=== PATIENT | male | born 1955 | race Two or more races ===

== ENCOUNTER 2021-09-18 08:56 | Outpatient (REF) | payer SELFPAY ==
[2021-09-18 09:30] LABS: MANUAL DIFF FLAG NO
[2021-09-18 09:46] LABS: Basophils Absolute Auto 0.1 X10*3/uL (0.0-0.2); Basophils Percent Auto 0.9 % (0-2); Eosinophils Absolute Auto 0.3 X10*3/uL (0.0-0.4); Eosinophils Percent Auto 4.7 % (0-4); Hematocrit 38.3 % (42.0-52.0); Hemoglobin 12.8 g/dl (14.0-18.0); Imm Gran Abs Auto 0.01 X10*3/uL (0.00-0.03); Imm Gran Pct Auto 0.2 % (0.0-0.4); Mean Corpuscular HGB Conc 33.4 g/dl (31.0-36.0); Mean Corpuscular Hemoglobin 29.8 pg (27.0-33.0); Mean Corpuscular Volume 89.1 fL (80.0-98.0); Mean Platelet Volume 9.8 fL (9.4-12.4); Monocytes Absolute Auto 0.7 X10*3/uL (0.1-1.2); Monocytes Percent Auto 11.2 % (2-11); Neutrophils Absolute Auto 3.5 x10*3/uL (2.0-8.3); Platelet Count 211 X10*3/uL (160-400); Red Cell Distribution Width 12.9 % (11.0-16.0); White Blood Count 6.6 X10*3/uL (4.8-10.8)
[2021-09-18 10:13] LABS: Alanine Aminotransferase 50 U/L (0-40); Albumin Level 4.3 g/dL (3.5-5.0); Alkaline Phosphatase 99 U/L (39-117); Anion Gap 11 (12-20); Aspartate Amino Transferase 29 U/L (5-37); Bilirubin Total 0.9 mg/dL (0.0-1.0); Blood Urea Nitrogen 19 mg/dL (9-16); Calcium 9.4 mg/dL (8.4-10.2); Carbon Dioxide 26 mmol/L (22-29); Chloride 105 mmol/L (96-108); Cholesterol 139 mg/dL; Estimated Glomerular Filt Rate > 60; Glucose Fasting 100 mg/dL (60-99); HDL Cholesterol 32 mg/dL; LDL Cholesterol Calculated 86 mg/dl; Potassium 3.9 mmol/L (3.3-5.1); Sodium 138 mmol/L (135-145); Total Protein 7.5 g/dL (6.5-8.0); Triglycerides 106 mg/dL
[2021-09-18 10:36] LABS: Prostate Specific Antigen 0.91 ng/mL (<0.05-4.0)
== END 2021-09-18 08:57 | disposition home or self-care (01) ==
LOC: HO.LAB 08:56
PROVIDERS: PCP Internal Medicine Medical Oncology; Visit Provider Internal Medicine Medical Oncology
DX: Z12.5 Encounter for screening for malignant neoplasm of prostate (principal); I25.10 Atherosclerotic heart disease of native coronary artery without angina pectoris; E78.5 Hyperlipidemia, unspecified; I10 Essential (primary) hypertension
CPT/HCPCS: 36415; 80053; 80061; 84153; 85025

== ENCOUNTER 2022-02-19 10:21 | Outpatient (REF) | payer SELFPAY ==
[2022-02-19 10:30] LABS: MANUAL DIFF FLAG NO
[2022-02-19 10:56] LABS: Basophils Percent Auto 0.6 % (0-2); Eosinophils Absolute Auto 0.3 X10*3/uL (0.0-0.4); Eosinophils Percent Auto 3.8 % (0-4); Hematocrit 39.7 % (42.0-52.0); Hemoglobin 13.3 g/dl (14.0-18.0); Imm Gran Abs Auto 0.02 X10*3/uL (0.00-0.03); Imm Gran Pct Auto 0.3 % (0.0-0.4); Lymphocytes Absolute Auto 2.2 X10*3/uL (1.2-4.9); Lymphocytes Percent Auto 30.6 % (20-40); Mean Corpuscular HGB Conc 33.5 g/dl (31.0-36.0); Mean Corpuscular Hemoglobin 29.7 pg (27.0-33.0); Mean Corpuscular Volume 88.6 fL (80.0-98.0); Mean Platelet Volume 10.2 fL (9.4-12.4); Monocytes Absolute Auto 0.7 X10*3/uL (0.1-1.2); Monocytes Percent Auto 9.8 % (2-11); Neutrophils Absolute Auto 3.9 x10*3/uL (2.0-8.3); Neutrophils Percent Auto 54.9 % (45-73); Platelet Count 216 X10*3/uL (160-400); Red Blood Count 4.48 X10*6/uL (4.60-5.80); White Blood Count 7.1 X10*3/uL (4.8-10.8)
[2022-02-19 11:21] LABS: Alanine Aminotransferase 62 U/L (0-40); Albumin Level 4.5 g/dL (3.5-5.0); Alkaline Phosphatase 98 U/L (39-117); Anion Gap 15 (12-20); Aspartate Amino Transferase 32 U/L (5-37); Bilirubin Total 0.9 mg/dL (0.0-1.0); Blood Urea Nitrogen 20 mg/dL (9-16); Calcium 9.9 mg/dL (8.4-10.2); Carbon Dioxide 25 mmol/L (22-29); Chloride 104 mmol/L (96-108); Cholesterol 166 mg/dL; Estimated Glomerular Filt Rate > 60; Glucose Fasting 107 mg/dL (60-99); HDL Cholesterol 39 mg/dL; LDL Cholesterol Calculated 104 mg/dl; Potassium 4.3 mmol/L (3.3-5.1); Sodium 140 mmol/L (135-145); Total Protein 7.9 g/dL (6.5-8.0); Triglycerides 115 mg/dL
== END 2022-02-19 10:22 | disposition home or self-care (01) ==
LOC: HO.LAB 10:21
PROVIDERS: PCP Internal Medicine Medical Oncology; Visit Provider Internal Medicine Medical Oncology
DX: E78.5 Hyperlipidemia, unspecified (principal); E66.3 Overweight
CPT/HCPCS: 36415; 80053; 80061; 85025

== ENCOUNTER 2024-10-19 08:45 | Outpatient (REF) | payer MEDICAID, SELFPAY ==
--- OUTSIDE RECORDS SUMMARY | 2024-10-19 09:30 | XMS_ITS ---
Author Organization Brandon Murguia III, MD Address [address] [place] [address] Care Team Providers Care Embossing Machine Operator Helper Name Role Phone Brandon Murguia Primary Care Provider Allergies Allergen (clinical drug ingredient) Drug/Non Drug Allergy documented on EMR Reaction Allergy Type Onset Date Status No Known Drug Allergy Unknown Drug Allergy Active REASON FOR VISIT Follow up Medications Medication SIG (Take, Route, Frequency, Duration) [...] Additional Findings: Tobacco Non-User Ex-cigaret te smoker Encounters Encounter Location Date Provider Diagnosis Brandon Murguia III, MD [address] [place] [address] [address] [place] [address] 10/19/2024 Brandon Murguia Hyperlipidemia E78.5 Assessments Encounter Date Diagnosis (ICD Code) Assessment Notes Treat ment Notes Treatment Clinical Notes 10/19/2024 Hyperlipidemia (ICD-10 - E78.5) His blood work is stable at this time and no change in his regimen as necessary. Plan Of Treatment Medication Medication Name Sig [...] MG 1 tablet Orally Once a day Next Appt Details Provider Name:Brandon Murguia, 10/19/2024 01:30:00 PM, [address] [place] [address] [address], [place], [address], Progress Notes * Darrell MAEDOB:[birth year] (69 yo M)Acc No.[id number]:10/19/2024 Progress Notes Patient: Darrell MAGALLANES Provider: Omero Murguia MD :1955 A ge:69 Y S ex:Male Date:10/19/2024 Address:[address] [place], [place] [id number] Subjective: * Chief Complaints: * 1 . Follow up. * HPI: C OVID-19 Screening: Questions H [...] of breath d enies. G astrointestinal: Constipation d enies. D ecreased appetite d enies.?Diarrhea d enies. H eartburn d enies. N ausea d enies. R ectal bleeding?denies. V omiting d enies. H ematology: bruising [...] Depressed mood d enies. * Medical History: T wo-vessel coronary artery disease, Hyperlipidemia, Hemorrhoid 09/2014. * Surgical History: N o history . * Hospitalization/Major Diagno stic Procedure: N o history . * Family History: pt does not know family history. * Social History: T obacco Use: T obacco Use/Smoking P atient is a f ormer smoker H ow long has it been since you last smoked??5-10 years A dditional Findings: Tobacco Non-User E x-cigarette smoker H e is single and lives alone and was born in [place]. * Medications: T aking Atorvastatin Calcium 80 MG Tablet TAKE 1 TABLET BY MOUTH EVERY DAY , Taking Metoprolol Tartrate 25 MG Tablet TAKE 1 TABLET BY MOUTH TWO TIMES A DAY WITH FOOD FOR 90 DAYS , Taking Lisinopril 5 MG Tablet TAKE 1 TABLET BY MOUTH EVERY DAY , Taking Simvastatin 40 MG Tablet 1 tablet in the evening Orally Once a day , Taking Adult Aspirin EC Low Strength 81 MG Tablet Delayed Release 1 tablet Orally Once a day , Taking Hydrocortisone 1 % Cream as directed Externally four times a day to effected area until resolved , Medication List reviewed and reconciled with the patient * Allergies: N o Known Drug Allergy. Objective: * Vitals: * Examination: G eneral Examination: GENERAL APPEARANCE: p leasant, well nourished, well developed, in no acute distress, calm and relaxed. HEAD: a traumatic, normocephalic. EYES: e jazmine, [...] * Assessment: 1. H yperlipidemia - E78.5 N otes :His blood work is stable at this time and no change in his regimen as necessary. Plan: * Treatment: 2. O thers Continue Atorvastatin Calcium Tablet, 80 MG, TAKE 1 TABLET BY MOUTH EVERY DAY; C ontinue Metoprolol Tartrate Tablet, 25 MG, TAKE 1 TABLET BY MOUTH TWO TIMES A DAY WITH FOOD FOR 90 DAYS; C ontinue Lisinopril Tablet, 5 MG, TAKE 1 TABLET BY MOUTH EVERY DAY. * Images: * The named appointment provid er may or may not be the originator of this progress note, and it is not deemed complete until electronically signed by the appointment provider. Sign off status: Pending * Provider: Omero Murguia MD Date: 10/19/2024 Generated for Elaine godwin/Andrew/Heidiitting on: 10/19/2024 08:59 AM EDT History and Physical Notes * HPI (History of Present Illness) Category Sub-Category Detail Notes COVID-19 Screening Questions Have you had any new onset fever, chills, cough, congestion, sore throat, shortness of breath, muscle aches?: No Examination Category Sub-Category Detail Notes General Examination GENERAL APPEARANCE: pleasant , well nourished, well developed, in no acute distress, calm and relaxed HEAD: atraumatic, normocep halic EYES: eomi, perrla, [...]
[2024-10-19 10:47] LABS: MANUAL DIFF FLAG NO
[2024-10-19 11:00] LABS: Hematocrit 38.6 % (42.0-52.0); Hemoglobin 12.8 g/dl (14.0-18.0); Imm Gran Abs Auto 0.03 X10*3/uL (0.00-0.03); Imm Gran Pct Auto 0.4 % (0.0-0.4); Lymphocytes Absolute Auto 2.4 X10*3/uL (1.2-4.9); Mean Corpuscular HGB Conc 33.2 g/dl (31.0-36.0); Mean Corpuscular Hemoglobin 28.7 pg (27.0-33.0); Mean Corpuscular Volume 86.5 fL (80.0-98.0); NRBC Abs Auto 0.000 X10*3/uL (0.0-0.012); NRBC Pct Auto 0.0 /100WBC (0.0-0.2); Platelet Count 214 X10*3/uL (160-400); Red Blood Count 4.46 X10*6/uL (4.60-5.80); White Blood Count 7.3 X10*3/uL (4.8-10.8)
[2024-10-19 11:46] LABS: Alanine Aminotransferase 47 U/L (0-40); Albumin Level 4.4 g/dL (3.5-5.0); Alkaline Phosphatase 93 U/L (39-117); Anion Gap 11 (12-20); Aspartate Amino Transferase 37 U/L (5-37); Blood Urea Nitrogen 22 mg/dL (9-16); Calcium 9.5 mg/dL (8.4-10.2); Carbon Dioxide 27 mmol/L (22-29); Chloride 104 mmol/L (96-108); Cholesterol 152 mg/dL (<200); Estimated Glomerular Filt Rate > 60; HDL Cholesterol 35 mg/dL (>40); Potassium 3.9 mmol/L (3.3-5.1); Sodium 138 mmol/L (135-145); Total Protein 7.5 g/dL (6.5-8.0); Triglycerides 128 mg/dL (<150)
== END 2024-10-19 08:46 | disposition home or self-care (01) ==
LOC: HO.HMGCLDS 08:45
PROVIDERS: PCP Internal Medicine Medical Oncology; Visit Provider Internal Medicine Medical Oncology
DX: Z00.00 Encounter for general adult medical examination without abnormal findings (principal); E78.5 Hyperlipidemia, unspecified; E66.3 Overweight
CPT/HCPCS: 36415; 80053; 80061; 85025

== ENCOUNTER 2025-03-08 08:30 | Outpatient (REF) | payer MEDICAID, SELFPAY ==
--- OUTSIDE RECORDS SUMMARY | 2023-09-10 12:45 | XMS_ITS ---
Author Organization Brandon Murguia III, MD Address [address] [place] [address] [place] [address] Care Team Providers Care Filling Station Equipment Mechanic Name Role Phone Dr. Brandon Murguia III Primary Care Provider REASON FOR VISIT follow up Social History Sex Assigned At : Social History Observation Description Sex Assigned At Male Encounters Encounter Location Date Provider Diagnosis Brandon Murguia III, MD [address] [place] [address] [place] [address] 09/10/2023 Brandon Murguia Plan Of Treatment Next Appt Details Provider Name:Brandon Murguia , 03/09/2025 01:45:00 PM, [address] [place] [address] [place], [address], Progress Notes * Darrell MAEDOB:[birth year] (69 yo M)Acc No.[id number]:09/10/2023 Progress Notes Patient: Darrell MAGALLANES Provider: Omero Murguia MD :1955 A ge:68 Y S ex:Male Date:09/10/2023 Address:[address] [place] [address] Triston faria [id number] Subjective: * Chief Complaints: * 1 . Follow up. * Medical History: Objective: * Vitals: Assessment: Plan: * Treatment: * Images: * The named appointment provid er may or may not be the originator of this progress note, and it is not deemed complete until electronically signed by the appointment provider. Sign off status: Pending * Provider: Omero Murguia MD Date: 0 09/10/2023 Generated for Elaine godwin/Andrew/Annamariasmitting on: 05/08/2024 08:45 AM EST
--- OUTSIDE RECORDS SUMMARY | 2023-12-03 09:30 | XMS_ITS ---
Author Organization Brandon Murguia III, MD Address [address] [place] [address] [place] [address] Care Team Providers Care Painting Technician Name Role Phone Dr. Brandon Murguia III Primary Care Provider Allergies Allergen (clinical drug ingredient) Drug/Non Drug Allergy documented on EMR Reaction Allergy Type Onset Date Status No Known Drug Allergy Unknown Drug Allergy Active Results Component Value Reference Range Notes PROFILE, FASTING (COMPREHENS DARLIN METABOLIC) Reviewed date:04/02/2024 02:15:44 PM Interpretation: Performing Lab: Notes/Report: LIPID PANEL Reviewed date:04/02/2024 02:15:58 PM Interpretation: Performing Lab: Notes/Report: CBC w DIFF Reviewed date:04/02/2024 02:16:10 PM Interpretation: Performing Lab: Notes/Report: Hemoglobin A1c Reviewed date:04/02/2024 02:16:24 PM Interpretation: Performing Lab: Notes/Report: REASON FOR VISIT BPH, Coronary artery disease, Hypertension, Low back pain Medications Medication SIG (Take, Route, Frequency, Duration) Notes Start Date End Date Status Lisinopril 5 MG 1 tablet Orally Once a day Active Metoprolol Tartrate 50 MG 1 tablet Orall y Twice a day Active Simvastatin 40 MG 1 tablet in the even ing Orally Once a day Active Adult Aspirin EC Low Strength 81 MG 1 tablet Orally Once a day Active Hydrocortisone 1 % as directed External ly four times a day to effected area until resolved 10/13/2014 Active Social History Tobacco Use: Social History Observation Description Date Details (start date - stop date) Former Smoker NA - NA Sex Assigned At : Social History Observation Description Sex Assigned At Male Tobacco Use/Smoking Question Answer Notes Patient is a former smoker How long has it been since you last smoked? 5-10 years Additional Findings: Tobacco Non-User Ex-cigaret te smoker Vital Signs Temperature 97.3 degrees Fahrenheit 12/03/19 24 Blood pressure systolic 134 mm Hg 12/03/19 24 Blood pressure diastolic 79 mm Hg 024 Heart Rate 50 /min 12/03/2023 Height 63 in 12/03/2023 Weight 163 lbs 12/03/2023 BMI 28.87 kg/m2 12/03/2023 Encounters Encounter Location Date Provider Diagnosis Brandon Murguia III, MD [address] [place] [address] [place] [address] 12/03/2023 Brandon Murguia Hyperlipidemia E78.5 ; CAD (coronary artery disease) I25.10 ; Essential hypertension I10 ; Hyperglycemia R73.9 ; Former smoker Z87.891 and Overweight E66.3 Assessments Encounter Date Diagnosis (ICD Code) Assessment Notes Treat ment Notes Treatment Clinical Notes 12/03/2023 Hyperlipidemia (ICD-10 - E78.5) His blood work is stable at this time and no change in his regimen as necessary. 12/03/2023 CAD (coronary artery disease) (ICD-10 - I25.10) His ischemic heart disease is stable. He has had no episodes of angina, palpitations or syncope recently. He has been compliant with his medications. His total cholesterol is in the target range. 12/03/2023 Essential hypertension (ICD-10 - I10) His blood pressure is stable today and its target range. No change in his regimen was necessary. I recommended sodium restriction and weight loss. 12/03/2023 Hyperglycemia (ICD-1 0 - R73.9) He has had normal glucose levels. The current value is 138. This will be repeated with a hemoglobin A1c. 12/03/2023 Former smoker (ICD-1 0 - Z87.891) He is motivated not to smoke and we discussed methods for maintenance of abstinence.He has lost 4 pounds since his last visit. 12/03/2023 Overweight (ICD-10 - E66.3) Plan Of Treatment Medication Medication Name Sig Start Date Stop Date Notes Lisinopril 5 MG 1 tablet Orally Once a day Metoprolol Tartrate 50 MG 1 tablet Orally Twice a day Simvastatin 40 MG 1 tablet in the even ing Orally Once a day Adult Aspirin EC Low Strengt h 81 MG 1 tablet Orally Once a day Hydrocortisone 1 % as directed External ly four times a day to effected area until resolved 10/13/2014 Next Appt Details Follow Up: 4 Months, Reason: ov review labs Provider Name:Brandon Murguia , 03/09/2025 01:45:00 PM, [address] [place] [address] [address] [facility], [place], [address], Progress Notes * Darrell MAEDOB:[birth year] (68 yo M)Acc No.[id number]:12/03/2023 Progress Notes Patient: Darrell Leal Provider: Omero Murguia MD :1955 A ge:68 Y S ex:Male Date:12/03/2023 Address:[address] [place], [place] [id number] Subjective: * Chief Complaints: * B PHCoronary artery diseaseHypertensionLow back pain * HPI: C OVID-19 Screening: He returns to the office for medical management of his issues. He has had idania ngina or syncope or palpitations since his last visit. His blood pressure is stable today. His blood work was reviewed with him. His back pain was minimal. He arises from sleep once or twice a night to urinate. We discussed modifications in his lifestyle that he can make to reduce nocturia. Blood work done November 26, 2023 showed white count 6.7, hematocrit 39.8 platelets 2:15 glucose 138, BUN 17, creatinine 0.92, total cholesterol 146, triglycerides 116 HDL 36, LDL 89. Questions H ave you experienced fever, chills, cough, sore throat, shortness of breath, difficulty breathing, muscle aches, loss of taste or smell? N o H ave you been exposed to the virus within the last 10 days? N o H ave you travelled internationally in the last 10 days? N o H ave you been exposed to COVID-19 in the past? N o * ROS: G eneral/Constitutional: pain o nly normal aches and pains. C hills d enies.?Fatigue a dmits. F ever d enies. E NT: Decreased hearing d enies. R espiratory: Cough d enies. C ardiovascular: Chest pain with exertion d enies. D yspnea on exertion?denies. S hortness of breath d enies. G astrointestinal: Constipation o ccasional. D ecreased appetite d enies. D iarrhea d enies. H eartburn d enies. N ausea d enies. R ectal bleeding d enies. V omiting d enies. H ematology: bruising d enies. p etechiae d enies. S wollen glands n one have been noted. G enitourinary: Frequent urination o nce a night. M usculoskeletal: Muscle aches d enies. P ainful joints d enies. S ciatica d enies. W eakness d enies. S kin: Itching d enies. R bianka d enies. S kin lesion(s)?denies. N eurologic: Difficulty speaking d enies. D izziness d enies.?Headache d enies. L ow back pain t hat is chronic. P sychiatric: Depressed mood d enies. * Medical History: * Surgical History: D enies Past Surgical History * Hospitalization/Major Diagno stic Procedure: D enies Past Hospitalization * Family History: pt does not know family history. * Social History: T obacco Use: T obacco Use/Smoking P atient is a f ormer smoker H ow long has it been since you last smoked??5-10 years A dditional Findings: Tobacco Non-User E x-cigarette smoker H e is single and lives alone and was born in [place]. * Medications: T akingLisinopril 5 MG Tablet 1 tablet Orally Once a dayMetoprolol Tartrate 50 MG Tablet 1 tablet Orally Twice a daySimvastatin 40 MG Tablet 1 tablet in the evening Orally Once a dayAdult Aspirin EC Low Strength 81 MG Tablet Delayed Release 1 tablet Orally Once a dayHydrocortisone 1 % Cream as directed Externally four times a day to effected area until resolvedMedication List reviewed and reconciled with the patientTaking Lisinopril 5 MG Tablet 1 tablet Orally Once a dayTaking Metoprolol Tartrate 50 MG Tablet 1 tablet Orally Twice a dayTaking Simvastatin 40 MG Tablet 1 tablet in the evening Orally Once a dayTaking Adult Aspirin EC Low Strength 81 MG Tablet Delayed Release 1 tablet Orally Once a dayTaking Hydrocortisone 1 % Cream as directed Externally four times a day to effected area until resolvedMedication List reviewed and reconciled with the patient * Allergies: N o Known Drug Allergyno[Allergies Verified] Objective: * Vitals: H t: 63, Wt:163, BMI:28.87, BP:134/79, HR:50, Temp:97.3, Wt-k.94. * Examination: G eneral Examination: GENERAL APPEARANCE: p leasant, well nourished, well developed, in no acute distress, calm and relaxed , overweight , man. HEAD: a traumatic, normocephalic. EYES: e jazmine, perrla, anicteric, conjugate. EARS: n ormal. NOSE: s eptum intact. ORAL CAVITY: n ormal, unremarkable. NECK/THYROID: n o jugular venous distention, no carotid bruit, thyroid normal. LYMPH NODES: n o enlarged lymph nodes,spleen normal. SKIN: n o suspicious lesions, anicteric. HEART: n o clicks, gallops, murmurs, or rubs, regular rhythm, S1, S2 normal, no s3, or vascular bruits. LUNGS: c lear to auscultation . BREASTS: no masses palpable bilaterally. ABDOMEN: b owel sounds normal, no ascites, no organomegaly, no mass. RECTAL EXAM: n ot examined. MUSCULOSKELETAL: e xtremities unremarkable, no clubbing, cyanosis or edema. PERIPHERAL PULSES: n ormal. NEUROLOGIC: a lert and oriented, cranial nerves 2-12 grossly intact, deep tendon reflexes 2+ symmetrical, motor strength normal upper and lower extremities, sensory exam intact. PSYCH: a lert, oriented. Assessment: * Assessment: 1. H yperlipidemia - E78.5 (Primary), His blood work is stable at this time and no change in his regimen as necessary. 2 . C AD (coronary artery disease) - I25.10, His ischemic heart disease is stable. He has had no episodes of angina, palpitations or syncope recently. He has been compliant with his medications. His total cholesterol is in the target range. 3 . E ssential hypertension - I10, His blood pressure is stable today and its target range. No change in his regimen was necessary. I recommended sodium restriction and weight loss. 4 . H yperglycemia - R73.9, He has had normal glucose levels. The current value is 138. This will be repeated with a hemoglobin A1c. 5 . F ormer smoker - Z87.891, He is motivated not to smoke and we discussed methods for maintenance of abstinence.He has lost 4 pounds since his last visit. 6 . O verweight - E66.3? Plan: * Treatment: 2. C AD (coronary artery disease) L AB: PROFILE, FASTING (COMPREHENSIVE METABOLIC) L AB: LIPID PANEL L AB: CBC w DIFF L AB: Hemoglobin A1c 3. E ssential hypertension L AB: PROFILE, FASTING (COMPREHENSIVE METABOLIC) L AB: LIPID PANEL L AB: CBC w DIFF L AB: Hemoglobin A1c 4. H yperglycemia L AB: PROFILE, FASTING (COMPREHENSIVE METABOLIC) L AB: LIPID PANEL L AB: CBC w DIFF L AB: Hemoglobin A1c * Procedure Codes: * Preventive Medicine: Counseling: C are goal follow-up plan: Counseling for abnormal BMI given Y es Above Normal BMI Follow-up D ietary management education, guidance, and counseling S moking/Tobacco Use Patient counseled on the dangers of tobacco use and urged to quit. 0 11/19/2023 * Follow Up: 4 Months (Reason: ov review labs ) * Images: * Sign off status: Completed true * Provider: Omero Murguia MD Date: 0 12/03/2023 Generated for Elaine godwin/Andrew/Heidiitting on: 05/08/2024 08:46 AM EST History and Physical Notes * HPI (History of Present Illness) Category Sub-Category Detail Notes COVID-19 Screening Questions Have you had any new onset fever, chills, cough, congestion, sore throat, shortness of breath, muscle aches?: No Have you been exposed to the virus with n the last 10 days?: No Have you travelled internationally in last 10 days?: No Have you been exposed to COVID-19 in the past?: No Examination Category Sub-Category Detail Notes General Examination GENERAL APPEARANCE: pleasant , well nourished, well developed, in no acute distress, calm and relaxed , overweight , man HEAD: atraumatic, normocep halic EYES: eomi, perrla, anicte juanito, conjugate EARS: normal NOSE: septum intact NECK/THYROID: no jugular venous di stention, no carotid bruit, thyroid normal HEART: no clicks, gallops, murmurs, or rubs, regular rhythm, S1, S2 normal, no s3, or vascular bruits LUNGS: clear to auscultatio n ABDOMEN: bowel sounds normal, no ascites, no organomegaly, no mass NEUROLOGIC: alert and oriented, cranial nerves 2-12 grossly intact, deep tendon reflexes 2+ symmetrical, motor strength normal upper and lower extremities, sensory exam intact SKIN: no suspicious lesion s, anicteric PERIPHERAL PULSES: normal BREASTS: no masses palpable b ilaterally MUSCULOSKELETAL: extremities unremark able, no clubbing, cyanosis or edema LYMPH NODES: no enlarged lymph no marisa,spleen normal RECTAL EXAM: not examined PSYCH: alert, oriented ORAL CAVITY: normal, unremarkable
--- OUTSIDE RECORDS SUMMARY | 2024-03-31 09:15 | XMS_ITS ---
Author Organization Brandon Murguia III, MD Address [address] [place] [address] [place] [id number] Care Team Providers Care Broker Name Role Phone Dr. Brandon Murguia III Primary Care Provider Allergies Allergen (clinical drug ingredient) Drug/Non Drug Allergy documented on EMR Reaction Allergy Type Onset Date Status No Known Drug Allergy Unknown Drug Allergy Active REASON FOR VISIT Coronary artery disease, Hyperlipidemia, Hypertension, Low back pain, Benign prostatic hypertrophy Medications Medication SIG (Take, Route, Frequency, Duration) Notes Start Date End Date Status Metoprolol Tartrate 25 MG TAKE 1 TABLET BY MOUTH TWO TIMES A DAY WITH FOOD FOR 90 DAYS Active Simvastatin 40 MG 1 tablet in the even ing Orally Once a day Active Lisinopril 5 MG TAKE 1 TABLET BY KORY TH EVERY DAY Active Hydrocortisone 1 % as directed External ly four times a day to effected area until resolved 10/13/2014 Active Adult Aspirin EC Low Strength 81 MG 1 tablet Orally Once a day Active Atorvastatin Calcium 80 MG TAKE 1 TABLET BY MOUTH EVERY DAY Active Social History Tobacco Use: Social History [...] Non-User Ex-cigaret te smoker Vital Signs Temperature 97.2 degrees Fahrenheit 03/31/20 24 Blood pressure systolic 138 mm Hg 03/31/20 24 Blood pressure diastolic 75 mm Hg 024 Heart Rate 42 /min 03/31/2024 Height 63 in 03/31/2024 Weight 162 lbs 03/31/2024 BMI 28.69 kg/m2 03/31/2024 Encounters Encounter Location Date Provider Diagnosis Brandon Murguia III, MD [address] [place] [address] DR [place], [place]ZA [id number] 03/31/2024 Brandon Murguia Hyperlipidemia E78.5 ; Essential hypertension I10 ; Back pain, unspecified back location, unspecified back pain laterality, unspecified chronicity M54.9 ; Hyperglycemia R73.9 ; CAD (coronary artery disease) I25.10 ; Former smoker Z87.891 and Overweight E66.3 Assessments Encounter Date Diagnosis (ICD Code) Assessment Notes Treat ment Notes Treatment Clinical Notes 03/31/2024 Hyperlipidemia (ICD-10 - E78.5) His blood work is stable at this time and no change in his regimen as necessary. 03/31/2024 Essential hypertension (ICD-10 - I10) His blood pressure today was 138/75. He was encouraged to lose weight and restrict sodium. No change in his medications was necessary. 03/31/2024 Back pain, unspecified back location, unspecified back pain laterality, unspecified chronicity (ICD-10 - M54.9) His back pain is intermittent and low-grade at this point. He will continue to avoid undue exertion and heavy lifting. He will return to the office at once if it exacerbates. 03/31/2024 Hyperglycemia (ICD-1 0 - R73.9) His hemoglobin A1c is 6.3. No change in his regimen was made. He was encouraged to lose weight and avoid concentrated sweets. 03/31/2024 CAD (coronary artery disease) (ICD-10 - I25.10) His ischemic heart disease is stable. He has had no episodes of angina, palpitations or syncope recently. He has been compliant with his medications. His total cholesterol is in the target range. 03/31/2024 Former smoker (ICD-1 0 - Z87.891) He is motivated not to smoke and we discussed methods for maintenance of abstinence.He has lost 4 pounds since his last visit. 03/31/2024 Overweight (ICD-10 - E66.3) His body mass index is 29. We reviewed his dieet and nutrition. We made a plan to lose weigght at a rate of one half of a pound per week. Plan Of Treatment Medication Medication Name Sig Start Date Stop Date Notes Metoprolol Tartrate 25 MG TAKE 1 TABLET BY MOUTH TWO TIMES A DAY WITH FOOD FOR 90 DAYS Simvastatin 40 MG 1 tablet in the even ing Orally Once a day Lisinopril 5 MG TAKE 1 TABLET BY KORY TH EVERY DAY Hydrocortisone 1 % as directed External ly four times a day to effected area until resolved 10/13/2014 Adult Aspirin EC Low Strengt h 81 MG 1 tablet Orally Once a day Atorvastatin Calcium 80 MG TAKE 1 TABLET BY MOUTH EVERY DAY Pending Test Test Name Order Date PROFILE, FASTING (COMPREHENSIVE METABOLI C) 03/31/2024 PSA, TOTAL 03/31/2024 CBC w DIFF 03/31/2024 Lipid Panel 03/31/2024 Microalbumin, Random 03/31/2024 Hemoglobin A1c 03/31/2024 Next Appt Details Follow Up: as scheduled, Jul, Reason: OV review labs, Annual exam Provider Name:Brandon Murguia , 03/09/2025 01:45:00 PM, [address] [place] [address], [id number], Progress Notes * Munira MAEreneDOB:[birth year] (68 yo M)Acc No.[id number]:03/31/2024 Progress Notes Patient: Darrell MAGALLANES Provider: Omero Murguia MD :1955 A ge:68 Y S ex:Male Date:03/31/2024 Address:[address] [place], [place] [id number] Subjective: * Chief Complaints: * C oronary artery diseaseHyperlipidemiaHypertensionLow back painBenign prostatic hypertrophy * HPI: C OVID-19 Screening: Questions H ave you had any new onset fever, chills, cough, congestion, sore throat, shortness of breath, muscle aches? N o * : The patient, a 68-year-old male, has been experiencing frequent urination during the night, waking up 2-3 times on average. He has been drinking a lot of water. He has no chest pain and his breathing is normal. He has lost weight, going from 171 lbs to 162 lbs. He has a good appetite and has been trying to eat healthier, including salads and less bread. He has a skin issue that is getting a bit bigger, but it is not infected. His heart sounds are normal with no murmurs detected.He denies any recent exertional angina palpitations or syncope. He has had no diaphoresis. He has been compliant with all of his medications. His back pain is minimal. Germain is trying to lose weight and consume a healthy low sodium low cholesterol diet. Blood work done March 30, 2024 showed white count 5.8 hematocrit 40.8 platelets 231 glucose 103 BUN 18 creatinine 0.94 A1c 6.3 total cholesterol 160 triglycerides 72 HDL 44 LDL 102. * ROS: G eneral/Constitutional: pain o nly normal aches and pains. C hills d enies.?Fatigue a dmits. F ever d enies. E NT: Decreased hearing m ild. R espiratory: Denies C hest pain. C ough d enies. ? C ardiovascular: Chest pain with exertion d [...] enies.?Headache d enies. L ow back pain d enies. P sychiatric: Depressed mood d enies. * Medical History: * Surgical History: N o history * Hospitalization/Major Diagno stic Procedure: N o history * Family History: pt does not know family history. * Social History: T obacco Use: T obacco Use/Smoking P atient is a f ormer smoker H ow long has it been since you last smoked??5-10 years A dditional Findings: Tobacco Non-User E x-cigarette smoker H e is single and lives alone and was born in [place]. * Medications: T akingSimvastatin 40 MG Tablet 1 tablet in the evening Orally Once a day Adult Aspirin EC Low Strength 81 MG Tablet Delayed Release 1 tablet Orally Once a day Hydrocortisone 1 % Cream as directed Externally four times a day to effected area until resolved Lisinopril 5 MG Tablet TAKE 1 TABLET BY MOUTH EVERY DAY Metoprolol Tartrate 25 MG Tablet TAKE 1 TABLET BY MOUTH TWO TIMES A DAY WITH FOOD FOR 90 DAYS Atorvastatin Calcium 80 MG Tablet TAKE 1 TABLET BY MOUTH EVERY DAY Medication List reviewed and reconciled with the patientTaking Simvastatin 40 MG Tablet 1 tablet in the evening Orally Once a day Taking Adult Aspirin EC Low Strength 81 MG Tablet Delayed Release 1 tablet Orally Once a day Taking Hydrocortisone 1 % Cream as directed Externally four times a day to effected area until resolved Taking Lisinopril 5 MG Tablet TAKE 1 TABLET BY MOUTH EVERY DAY Taking Metoprolol Tartrate 25 MG Tablet TAKE 1 TABLET BY MOUTH TWO TIMES A DAY WITH FOOD FOR 90 DAYS Taking Atorvastatin Calcium 80 MG Tablet TAKE 1 TABLET BY MOUTH EVERY DAY Medication List reviewed and reconciled with the patient * Allergies: N o Known Drug Allergyno[Allergies Verified] Objective: * Vitals: H t: 63, Wt:162, BMI:28.69, BP:138/75, HR:42, Temp:97.2, Wt-k.48. * Examination: G eneral Examination: GENERAL APPEARANCE: p leasant, well nourished, well developed, in no acute distress, calm and relaxed, overweight, man. HEAD: a traumatic, normocephalic. EYES: e [...] sounds normal, no ascites, no organomegaly, no mass, overweight. RECTAL EXAM: n ot examined. MUSCULOSKELETAL: e xtremities unremarkable, no clubbing, cyanosis or edema. PERIPHERAL PULSES: n ormal. NEUROLOGIC: a lert and oriented, cranial nerves 2-12 grossly intact, deep tendon reflexes 2+ symmetrical, motor strength normal upper and lower extremities, sensory exam intact. PSYCH: a lert, oriented. - : H eart:Normal heart sounds, no murmurs detected Skin:Issue present, not infected Weight:Lost weight, currently 162 lbs. Assessment: * Assessment: 1. H yperlipidemia - E78.5 (Primary) N otes :His blood work is stable at this time and no change in his regimen as necessary. 2 . E ssential hypertension - I10 N otes :His blood pressure today was 138/75. He was encouraged to lose weight and restrict sodium.? No change in his medications was necessary. 3 . B ack pain, unspecified back location, unspecified back pain laterality, unspecified chronicity - M54.9 N otes :His back pain is intermittent and low-grade at this point. He will continue to avoid undue exertion and heavy lifting. He will return to the office at once if it exacerbates. 4 . H yperglycemia - R73.9 N otes :His hemoglobin A1c is 6.3. No change in his regimen was made. He was encouraged to lose weight and avoid concentrated sweets. 5 . C AD (coronary artery disease) - I25.10 N otes :His ischemic heart disease is stable. He has had no episodes of angina, palpitations or syncope recently. He has been compliant with his medications. His total cholesterol is in the target range. 6 . F ormer smoker - Z87.891 N otes :He is motivated not to smoke and we discussed methods for maintenance of abstinence.He has lost 4 pounds since his last visit. 7 . O verweight - E66.3 N otes :His body mass index is 29. We reviewed his dieet and nutrition. We made a plan to lose weigght at a rate of one half of a pound per week. Plan: * Treatment: 2. E ssential hypertension L AB: PROFILE, FASTING (COMPREHENSIVE METABOLIC) L AB: PSA, TOTAL L AB: CBC w DIFF L AB: Lipid Panel L AB: Microalbumin, Random L AB: Hemoglobin A1c 3. B ack pain, unspecified back location, unspecified back pain laterality, unspecified chronicity L AB: PROFILE, FASTING (COMPREHENSIVE METABOLIC) L AB: PSA, TOTAL L AB: CBC w DIFF L AB: Lipid Panel L AB: Microalbumin, Random L AB: Hemoglobin A1c 4. H yperglycemia L AB: PROFILE, FASTING (COMPREHENSIVE METABOLIC) L AB: PSA, TOTAL L AB: CBC w DIFF L AB: Lipid Panel L AB: Microalbumin, Random L AB: Hemoglobin A1c 5. O thers Continue Atorvastatin Calcium Tablet, 80 MG, TAKE 1 TABLET BY MOUTH EVERY DAY; C ontinue Metoprolol Tartrate Tablet, 25 MG, TAKE 1 TABLET BY MOUTH TWO TIMES A DAY WITH FOOD FOR 90 DAYS; C ontinue Lisinopril Tablet, 5 MG, TAKE 1 TABLET BY MOUTH EVERY DAY. * Procedure Codes: * Preventive Medicine: Counseling: C are goal follow-up plan: Counseling for abnormal BMI given Y es Above Normal BMI Follow-up D ietary management education, guidance, and counseling, Dietary needs education S moking/Tobacco Use Patient counseled on the dangers of tobacco use and urged to quit. 1 06/01/2023 * Follow Up: a s scheduled, July (Reason: OV review labs, Annual exam) * Images: * Sign off status: Completed true * Provider: Omero Murguia MD Date: 06/01/2023 Generated for Elaine godwin/Andrew/eTnigleitting on: 05/08/2024 08:46 AM EST History and Physical Notes * HPI (History of Present Illness) Category Sub-Category Detail Notes COVID-19 Screening Questions Have you had any new onset fever, chills, cough, congestion, sore throat, shortness of breath, muscle aches?: No Examination Category Sub-Category Detail Notes General Examination GENERAL APPEARANCE: pleasant , well nourished, well developed, in no acute distress, calm and relaxed, overweight, man HEAD: atraumatic, normocep halic EYES: eomi, perrla, anicte juanito, conjugate EARS: normal NOSE: septum intact NECK/THYROID: no jugular venous di stention, no carotid bruit, thyroid normal HEART: no clicks, gallops, murmurs, or rubs, regular rhythm, S1, S2 normal, no s3, or vascular bruits LUNGS: clear to auscultatio n ABDOMEN: bowel sounds normal, no ascites, no organomegaly, no mass, overweight NEUROLOGIC: alert and oriented, cranial nerves 2-12 [...]
--- OUTSIDE RECORDS SUMMARY | 2024-08-03 09:00 | XMS_ITS ---
Author Organization Brandon Murguia III, MD Address [address] [place] [address] [place] [id number] Care Team Providers Care Phone Counselor Name Role Phone Dr. Brandon Murguia III Primary Care Provider Allergies Allergen (clinical drug ingredient) Drug/Non Drug Allergy documented on EMR Reaction Allergy Type Onset Date Status No Known Drug Allergy Unknown Drug Allergy Active Results Component Value Reference Range Notes URINE DIP STICK Reviewed date:08/03/2024 04:32:37 PM Interpretation: Performing Lab: Notes/Report: SG 1.005 1.005 - 1.025 pH 5.0 5.0 - 9.0 KOTA neg Negative - NIT neg Negative - PRO 15 Negative - Trace GLU neg Negative - KET neg Negative - UBG 0.2 0.1 - 1.8 BRYANT neg 0.2 - 1.3 BLD neg Negative - Menstrating n/a Reason For Referral Reason Consult and treat High Risk Screen for Colon Cancer Diagnosis 1 Screen for colon can cer (Z12.11) Referral Organization Brandon Murguia III, MD Referring Provider First Name Brandon Referring Provider Last Name Blade Referring Provider Speciality Internal M edicine Referred Organization [facility] Referred Provider [facility] Referred Address [address] [place] [address],[place],[id number], Referred Provider Specialty Gastroentero florencio General Notes Yolie Courtney 08/07/2024 09:52:38 AM > referral and progress note faxed. Patients daughter was given the number to contact them., Yolie Courtney 10/14/2024 03:47:13 PM > Spoke with Geeta at [facility] stated the fax number is invalid they are no longer receiving referral to that fax all referral need to come with a cover sheet and be sent to [phone]. Referral has been updated from Dr. Veloz to [facility]. Referral, cover sheet and progress note has been faxed to [phone] Referral Priority Routine REASON FOR VISIT Annual Exam Medications Medication SIG (Take, Route, Frequency, Duration) Notes Start Date End Date Status Hydrocortisone 1 % as directed External ly four times a day to effected area until resolved 10/13/2014 Active Adult Aspirin EC Low Strength 81 MG 1 tablet Orally Once a day Active Simvastatin 40 MG 1 tablet in the even ing Orally Once a day Active Lisinopril 5 MG TAKE 1 TABLET BY KORY TH EVERY DAY Active Metoprolol Tartrate 25 MG TAKE 1 TABLET BY MOUTH TWO TIMES A DAY WITH FOOD FOR 90 DAYS Active Atorvastatin Calcium 80 MG TAKE 1 [...] Non-User Ex-cigaret te smoker Vital Signs Temperature 97.4 degrees Fahrenheit 08/04/19 25 Blood pressure systolic 135 mm Hg 08/04/19 25 Blood pressure diastolic 83 mm Hg 025 Heart Rate 45 /min 08/03/2024 Height 63 in 08/03/2024 Weight 165 lbs 08/03/2024 BMI 29.23 kg/m2 08/03/2024 Encounters Encounter Location Date Provider Diagnosis Brandon Murguia III, MD [address] [place] [address] DR [place], [place]INZA [id number] 08/03/2024 Brandon Murguia Hyperlipidemia E78.5 ; CAD (coronary artery disease) I25.10 ; Overweight E66.3 ; Essential hypertension I10 ; Former smoker Z87.891 ; Back pain, unspecified back location, unspecified back pain laterality, unspecified chronicity M54.9 and BPH (benign prostatic hyperplasia) N40.0 Assessments Encounter Date Diagnosis (ICD Code) Assessment Notes Treat ment Notes Treatment Clinical Notes 08/03/2024 Hyperlipidemia (ICD-10 - E78.5) His blood work is stable at this time and no change in his regimen as necessary. 08/03/2024 CAD (coronary artery disease) (ICD-10 - I25.10) His ischemic heart disease is stable. He has had no episodes of angina, palpitations or syncope recently. He has been compliant with his medications. His total cholesterol is in the target range. 08/03/2024 Overweight (ICD-10 - E66.3) His body mass index is 29. He has gained 3 pounds.We reviewed his weight loss plan and diet and nutrition. He is going to try to lose weight at a rate of one half of a pound per week. 08/03/2024 Essential hypertension (ICD-10 - I10) His blood pressure today was 135/83. He was encouraged to lose weight and restrict sodium. No change in his medications was necessary. 08/03/2024 Former smoker (ICD-1 0 - Z87.891) He is motivated not to smoke and we discussed methods for maintenance of abstinence.He has lost 4 pounds since his last visit. 08/03/2024 Back pain, unspecified back location, unspecified back pain laterality, unspecified chronicity (ICD-10 - M54.9) His back pain is intermittent and low-grade at this point. He will continue to avoid undue exertion and heavy lifting. He will return to the office at once if it exacerbates. 08/03/2024 BPH (benign prostati c hyperplasia) (ICD-10 - N40.0) He rises from sleep once or twice a night. We have discussed lifestyle modification as a way to reduce nocturia. Plan Of Treatment Medication Medication Name Sig Start Date Stop Date Notes Hydrocortisone 1 % as directed External ly four times a day to effected area until resolved 10/13/2014 Adult Aspirin EC Low Strengt h 81 MG 1 tablet Orally Once a day Simvastatin 40 MG 1 tablet in the even ing Orally Once a day Lisinopril 5 MG TAKE 1 TABLET BY KORY TH EVERY DAY Metoprolol Tartrate 25 MG TAKE 1 TABLET BY MOUTH TWO TIMES A DAY WITH FOOD FOR 90 DAYS Atorvastatin Calcium 80 MG TAKE 1 TABLET BY MOUTH EVERY DAY Pending Test Test Name Order Date PROFILE, FASTING (COMPREHENSIVE METABOLI C) 08/03/2024 CBC w DIFF 08/03/2024 Lipid Panel 08/03/2024 Referrals Referral Date Details 08/03/2024 08/03/2024, Consult and treat High Risk Screen for Colon Cancer, Gastroenterology [facility], [address] [place] [address], [phone], Next Appt Details Follow Up: 4 Months, Reason: Office visit Provider Name:Brandon Murguia , 03/09/2025 01:45:00 PM, [address] [place] [address] DR [facility] [place], [phone], Progress Notes * Munira MAEreneDOB:[birth year] (69 yo M)Acc No.[id number]:08/03/2024 Progress Notes Patient: Darrell MAGALLANES Provider: Omero Murguia MD :1955 A ge:69 Y S ex:Male Date:08/03/2024 Address:[address] [place], [place] [id number] Subjective: * Chief Complaints: * A nnual Exam * HPI: D epression Screening: PHQ-9 L ittle interest or pleasure in doing things?Not at all F eeling down, depressed, or hopeless N ot at all T rouble falling or staying asleep, or sleeping too much N ot at all F eeling tired or having little energy N ot at all P oor appetite or overeating N ot at all F eeling bad about yourself or that you are a failure, or have let yourself or your family down N ot at all T rouble concentrating on things, such as reading the newspaper or watching television N ot at all M oving or speaking so slowly that other people could have noticed; or the opposite, being so fidgety or restless that you have been moving around a lot more than usual N ot at all T houghts that you would be better off or of hurting yourself in some way N ot at all T otal Score 0 C OVID-19 Screening: Questions H ave you had any new onset fever, chills, cough, congestion, sore throat, shortness of breath, muscle aches? N o F all Risk Screening: Fall History H ave you had any falls with injury in the past year? N o H ave you had two or more falls in the past year? N o F all Risk Assessment: S EDENILSON Questions: He returns to the office at the age of 69, for his annual physical examination. He is due for a colonoscopy and was referred to a public relations associate for the same. He is having a gastrointestinal symptoms or bleeding. He has had no angina. He denies any palpitations or syncope. His hemorrhoids have resolved. He is not smokking. His vital signs were stable today.His blood pressure was 135/83, and his BMI is 29. He is tryiing to lose weight and consume a healthy diet. He arises from sleep once a night to urinate. His back pain is currently absent. SDOH Questions I n the past year have you been worried about losing your housing? N o I n the past year have you or any family members you live with been unable to get any of the following when it was really needed? Check all that apply: N one * ROS: G eneral/Constitutional: pain o nly [...] enies. D iarrhea d enies. H e[place] o ccasional. N ausea d enies. R ectal bleeding [...] and lives alone and was born in [place]. * Medications: T akingAtorvastatin Calcium 80 MG Tablet TAKE 1 TABLET BY MOUTH EVERY DAY Metoprolol Tartrate 25 MG Tablet TAKE 1 TABLET BY MOUTH TWO TIMES A DAY WITH FOOD FOR 90 DAYS Lisinopril 5 MG Tablet TAKE 1 TABLET BY MOUTH EVERY DAY Adult Aspirin EC Low Strength 81 MG Tablet Delayed Release 1 tablet Orally Once a day Taking Atorvastatin Calcium 80 MG Tablet TAKE 1 TABLET BY MOUTH EVERY DAY Taking Metoprolol Tartrate 25 MG Tablet TAKE 1 TABLET BY MOUTH TWO TIMES A DAY WITH FOOD FOR 90 DAYS Taking Lisinopril 5 MG Tablet TAKE 1 TABLET BY MOUTH EVERY DAY Taking Adult Aspirin EC Low Strength 81 MG Tablet Delayed Release 1 tablet Orally Once a day DiscontinuedSimvastatin 40 MG Tablet 1 tablet in the evening Orally Once a day Hydrocortisone 1 % Cream as directed Externally four times a day to effected area until resolved Medication List reviewed and reconciled with the patientDiscontinued Simvastatin 40 MG Tablet 1 tablet in the evening Orally Once a day Discontinued Hydrocortisone 1 % Cream as directed Externally four times a day to effected area until resolved Medication List reviewed and reconciled with the patient * Allergies: N o Known Drug Allergyno[Allergies Verified] Objective: * Vitals: H t: 63, Wt:165, BMI:29.23, BP:135/83, HR:45, Temp:97.4, Wt-k.84. * P ast Orders: Lab:URINE DIP STICK * Collection Date 08/03/2024 07/02/2022 06/05/2017 Collection Time 02:17 PM Order Date 08/03/2024 07/02/2022 06/05/2017 SG 1.005 (Ref Range: 1.005 - 1.025) 1.030 (Ref Range: 1.005 - 1.025) 1.020 pH 5.0 (Ref Range: 5.0 - 9.0) 5.0 (Ref Range: 5.0 - 9.0) 5 KOTA neg (Ref Range: Negative -) Neg (Ref Range: Negative -) neg NIT neg (Ref Range: Negative -) Neg (Ref Range: Negative -) neg PRO 15 (Ref Range: Negative - Trace) 15 (Ref Range: Negative - Trace) neg GLU neg (Ref Range: Negative -) Neg (Ref Range: Negative -) neg KET neg (Ref Range: Negative -) Neg (Ref Range: Negative -) neg UBG 0.2 (Ref Range: 0.1 - 1.8) 0.2 (Ref Range: 0.1 - 1.8) normal BRYANT neg (Ref Range: 0.2 - 1.3) Neg (Ref Range: 0.2 - 1.3) neg BLD neg (Ref Range: Negative -) 50 (Ref Range: Negative -) neg Menstrating n/a N/A NR * Examination: G eneral Examination: GENERAL APPEARANCE: [...] no organomegaly, no mass, overweight. RECTAL EXAM: R eferred to upcoming colonoscopy. MUSCULOSKELETAL: e xtremities unremarkable, no clubbing, cyanosis or edema, Decreased range of motion lumbar spine. PERIPHERAL PULSES: n ormal. NEUROLOGIC: a lert and oriented, cranial nerves 2-12 grossly intact, deep tendon reflexes 2+ symmetrical, motor strength normal upper and lower extremities, sensory exam intact. PSYCH: a lert, oriented. Assessment: * Assessment: 1. C AD (coronary artery disease) - I25.10 (Primary) N otes :His ischemic heart disease is stable. He has had no episodes of angina, palpitations or syncope recently. He has been compliant with his medications. His total cholesterol is in the target range. 2 . H yperlipidemia - E78.5 N otes :His blood work is stable at this time and no change in his regimen as necessary. 3 . O verweight - E66.3 N otes :His body mass index is 29. He has gained 3 pounds.We reviewed his weight loss plan and diet and nutrition. He is going to try to lose weight at a rate of one half of a pound per week. 4 . E ssential hypertension - I10 N otes :His blood pressure today was 135/83. He was encouraged to lose weight and restrict sodium. No change in his medications was necessary. 5 . F ormer smoker - Z87.891 N otes :He is motivated not to smoke and we discussed methods for maintenance of abstinence.He has lost 4 pounds since his last visit. 6 . B ack pain, unspecified back location, unspecified back pain laterality, unspecified chronicity - M54.9 N otes :His back pain is intermittent and low-grade at this point. He will continue to avoid undue exertion and heavy lifting. He will return to the office at once if it exacerbates. 7 . B PH (benign prostatic hyperplasia) - N40.0 N otes :He rises from sleep once or twice a night. We have discussed lifestyle modification as a way to reduce nocturia. Plan: * Treatment: 2. O verweight L AB: PROFILE, FASTING (COMPREHENSIVE METABOLIC) L AB: CBC w DIFF L AB: Lipid Panel 3. O thers Continue Atorvastatin Calcium Tablet, 80 MG, TAKE 1 TABLET BY MOUTH EVERY DAY; C ontinue Metoprolol Tartrate Tablet, 25 MG, TAKE 1 TABLET BY MOUTH TWO TIMES A DAY WITH FOOD FOR 90 DAYS; C ontinue Lisinopril Tablet, 5 MG, TAKE 1 TABLET BY MOUTH EVERY DAY. ? Referral To:[facility] Reason:Consult and treat High Risk Screen for Colon Cancer * Labs: * L ab: URINE DIP STICK (Collection Date & Time - 08/03/2024 02:17 PM) Value Reference Range S G 1.005 1.005 - 1.025 * p H 5.0 5.0 - 9.0 * L EU neg Negative - * N IT neg Negative - * P RO 15 Negative - Trace * G LADY neg Negative - * K ET neg Negative - * U BG 0.2 0.1 - 1.8 * B IL neg 0.2 - 1.3 * B LD neg Negative - * M enstrating n/a * Procedure Codes: 8 1002 URINE-NO MICRO * Preventive Medicine: Counseling: C are goal follow-up plan: Counseling for abnormal BMI given Y es Above Normal BMI Follow-up D ietary management education, guidance, and counseling, Dietary needs education S moking/Tobacco Use Patient counseled on the dangers of tobacco use and urged to quit. 0 08/03/2024 * Follow Up: 4 Months (Reason: Office visit) * Images: * Sign off status: Completed true * Provider: Omero Murguia MD Date: 0 08/03/2024 Generated for Elaine godwin/Andrew/eTransmitting on: 1 05/08/2024 08:46 AM EST History and Physical Notes * HPI (History of Present Illness) Category Sub-Category Detail Notes Depression Screening PHQ-9 Little inte rest or pleasure in doing things: Not at all Feeling down, depressed, or hopeless: No t at all Trouble falling or staying asleep, or sl eeping too much: Not at all Feeling tired or having little energy: N ot at all Poor appetite or overeating: Not at all Feeling bad about yourself o r that you are a failure, or have let yourself or your family down: Not at all Trouble concentrating on thi ngs, such as reading the newspaper or watching television: Not at all Moving or speaking so slowly that other people could have noticed; or the opposite, being so fidgety or restless that you have been moving around a lot more than usual: Not at all Thoughts that you would be b ellis off or of hurting yourself in some way: Not at all Total Score: 0 Fall Risk Screening Fall History Have you had any falls with injury in the past year?: No Have you had two or more falls in the year?: No Fall Risk Assessment:: COVID-19 Screening Questions Have you had any new onset fever, chills, cough, congestion, sore throat, shortness of breath, muscle aches?: No SDOH Questions SDOH Questions In the past year have you been worried about losing your housing?: No In the past year have you or any family members you live with been unable to get any of the following when it was really needed? Check all that apply:: None Examination Category Sub-Category Detail Notes General Examination [...] extremities unremark able, no clubbing, cyanosis or edema, Decreased range of motion lumbar spine LYMPH NODES: no enlarged lymph no marisa,spleen normal RECTAL EXAM: Referred to upcoming colonoscopy PSYCH: alert, oriented ORAL CAVITY: normal, unremarkable Consultation Request Notes Referral Date Referring Provider Referred Provider Not jennifer 08/03/2024 Brandon Murguia, Gastroenterology Consult and treat High Risk Screen for Colon Cancer
--- OUTSIDE RECORDS SUMMARY | 2024-10-19 08:30 | XMS_ITS ---
Author Organization Brandon Murguia III, MD Address [address] [place] [address] [place] [address] Care Team Providers Care Emr Analyst Name Role Phone Dr. Brandon Murguia III [...] to effected area until resolved 10/13/2014 Active Simvastatin 40 MG 1 tablet in the even ing Orally Once a day Active Lisinopril 5 MG TAKE 1 TABLET BY KORY TH EVERY DAY Active Metoprolol Tartrate 25 MG TAKE 1 TABLET BY MOUTH TWO TIMES A DAY WITH FOOD FOR 90 DAYS Active Atorvastatin Calcium 80 MG TAKE 1 TABLET BY MOUTH EVERY DAY Active Adult Aspirin EC Low Strength 81 MG 1 tablet Orally Once a day Active Social History Tobacco Use: Social History [...] smoker Vital Signs Temperature 97.4 degrees Fahrenheit 10/20/19 25 Blood pressure systolic 137 mm Hg 10/20/19 25 Blood pressure diastolic 84 mm Hg 025 Heart Rate 48 /min 10/19/2024 Height 63 in 10/19/2024 Weight 166 lbs 10/19/2024 BMI 29.4 kg/m2 10/19/2024 Encounters Encounter Location Date Provider Diagnosis Brandon Murguia III, MD [address] [place] [address] [address] [place], [place] [address] 10/19/2024 Brandon Murguia Hyperlipidemia E78.5 ; CAD (coronary artery disease) I25.10 ; Essential hypertension I10 ; BPH (benign prostatic hyperplasia) N40.0 ; Former smoker Z87.891 and Overweight E66.3 Assessments Encounter Date Diagnosis (ICD Code) Assessment Notes Treat ment Notes Treatment Clinical Notes 10/19/2024 Hyperlipidemia (ICD-10 - E78.5) His blood work is stable at this time and no change in his regimen as necessary. 10/19/2024 CAD (coronary artery disease) (ICD-10 - I25.10) His ischemic heart disease is stable. He has had no episodes of angina, palpitations or syncope recently. He has been compliant with his medications. His total cholesterol is in the target range. 10/19/2024 Essential hypertension (ICD-10 - I10) His blood work remains well controlled. He has been compliant with medication. 10/19/2024 BPH (benign prostati c hyperplasia) (ICD-10 - N40.0) He reports rising from sleep usually once a night. Occasionally twice. We have discussed ways to reduce nocturia. 10/19/2024 Former smoker (ICD-1 0 - Z87.891) He is motivated not to smoke and we discussed methods for maintenance of abstinence.He has lost 4 pounds since his last visit. 10/19/2024 Overweight (ICD-10 - E66.3) His body mass [...] day to effected area until resolved 10/13/2014 Simvastatin 40 MG 1 tablet in the even ing Orally Once a day Lisinopril 5 MG TAKE 1 TABLET BY KORY TH EVERY DAY Metoprolol Tartrate 25 MG TAKE 1 TABLET BY MOUTH TWO TIMES A DAY WITH FOOD FOR 90 DAYS Atorvastatin Calcium 80 MG TAKE 1 TABLET BY MOUTH EVERY DAY Adult Aspirin EC Low Strengt h 81 MG 1 tablet Orally Once a day Pending Test Test Name Order Date PROFILE, FASTING (COMPREHENSIVE METABOLI C) 10/19/2024 PSA, TOTAL 10/19/2024 CBC w DIFF 10/19/2024 Lipid Panel 10/19/2024 Next Appt Details Follow Up: 4 Months, Reason: ov review labs Provider Name:Brandon Murguia , 03/09/2025 01:45:00 PM, [address] [place] [address], [address], Progress Notes * Darrell MAEDOB:[birth year] (69 yo M)Acc No.[id number]:10/19/2024 Progress Notes Patient: Darrell MAGALLANES Provider: Omero Murguia MD :1955 A ge:69 Y S ex:Male Date:10/19/2024 Address:[address] [place], [place] [id number] Subjective: * Chief Complaints: * C oronary artery diseaseHyperlipidemiaHypertensionLow back painBenign prostatic hypertrophy * HPI: C OVID-19 Screening: He returns for medical management. Shelley pizano has had no chest pain or dyspnea. Since his last visit. His hemorrhoids are resolved. His blood pressure was well controlleed today. He is trying to lose weight. His back pain has resolved. He arises from sleep once or twice a night to urinate. We have discussed lifestyle modifications he could make to reduce nocturia.Comprehensive blood work from October 19, 2024 was available and was reviewed with him in detail. Shelley pizano has been compliant with his medications. No changes in his regimen were necessary today. Questions H ave you had any new onset fever, chills, cough, congestion, sore throat, shortness of breath, muscle aches? N o * ROS: G eneral/Constitutional: pain [...] have been noted. G enitourinary: Frequent urination d enies. M usculoskeletal: Muscle aches d enies. P [...] and lives alone and was born in [place]. * Medications: T akingAtorvastatin Calcium 80 MG Tablet TAKE 1 TABLET BY MOUTH EVERY DAY Metoprolol Tartrate 25 MG Tablet TAKE 1 TABLET BY MOUTH TWO TIMES A DAY WITH FOOD FOR 90 DAYS Lisinopril 5 MG Tablet TAKE 1 TABLET BY MOUTH EVERY DAY Simvastatin 40 MG Tablet 1 tablet in the evening Orally Once a day Adult Aspirin EC Low Strength 81 MG Tablet Delayed Release 1 tablet Orally Once a day Hydrocortisone 1 % Cream as directed Externally four times a day to effected area until resolved Medication List reviewed and reconciled with the patientTaking Atorvastatin Calcium 80 MG Tablet TAKE 1 TABLET BY MOUTH EVERY DAY Taking Metoprolol Tartrate 25 MG Tablet TAKE 1 TABLET BY MOUTH TWO TIMES A DAY WITH FOOD FOR 90 DAYS Taking Lisinopril 5 MG Tablet TAKE 1 TABLET BY MOUTH EVERY DAY Taking Simvastatin 40 MG Tablet 1 tablet in [...] Verified] Objective: * Vitals: H t: 63, Wt:166, BMI:29.4, BP:137/84, HR:48, Temp:97.4, Wt-k.3. * P ast Orders: Lab:URINE DIP STICK [...] -) neg Menstrating n/a N/A NR * Lab:Complete Blood Count Aut o Diff * Collection Date 10/19/2024 02/19/2022 09/18/2021 Collection Time 09:01 AM 10:29 AM 09:30 AM Order Date 10/19/2024 02/19/2022 09/18/2021 White Blood Count 7.3 (Ref Range: 4.8-10.8 X10*3/uL) 7.1 (Ref Range: 4.8-10.8 X10*3/uL) 6.6 (Ref Range: 4.8-10.8 X10*3/uL) Red Blood Count 4.46 L (Ref Range: 4.60-5.80 X10*6/uL) 4.48 L (Ref Range: 4.60-5.80 X10*6/uL) 4.30 L (Ref Range: 4.60-5.80 X10*6/uL) Hemoglobin 12.8 L (Ref Range: 14.0-18.0 g/dl) 13.3 L (Ref Range: 14.0-18.0 g/dl) 12.8 L (Ref Range: 14.0-18.0 g/dl) Hematocrit 38.6 L (Ref Range: 42.0-52.0 %) 39.7 L (Ref Range: 42.0-52.0 %) 38.3 L (Ref Range: 42.0-52.0 %) Mean Corpuscular Volume 86.5 (Ref Range: 80.0-98.0 fL) 88.6 (Ref Range: 80.0-98.0 fL) 89.1 (Ref Range: 80.0-98.0 fL) Mean Corpuscular Hemoglobin 28.7 (Ref Range: 27.0-33.0 pg) 29.7 (Ref Range: 27.0-33.0 pg) 29.8 (Ref Range: 27.0-33.0 pg) Mean Corpuscular HGB Conc 33.2 (Ref Range: 31.0-36.0 g/dl) 33.5 (Ref Range: 31.0-36.0 g/dl) 33.4 (Ref Range: 31.0-36.0 g/dl) Red Cell Distribution Width 13.6 (Ref Range: 11.0-16.0 %) 13.0 (Ref Range: 11.0-16.0 %) 12.9 (Ref Range: 11.0-16.0 %) Platelet Count 214 (Ref Range: 160-400 X10*3/uL) 216 (Ref Range: 160-400 X10*3/uL) 211 (Ref Range: 160-400 X10*3/uL) Mean Platelet Volume 10.5 (Ref Range: 9.4-12.4 fL) 10.2 (Ref Range: 9.4-12.4 fL) 9.8 (Ref Range: 9.4-12.4 fL) Neutrophils Percent Auto 53.7 (Ref Range: 45-73 %) 54.9 (Ref Range: 45-73 %) 53.0 (Ref Range: 45-73 %) Imm Gran Pct Auto 0.4 (Ref Range: 0.0-0.4 %) 0.3 (Ref Range: 0.0-0.4 %) 0.2 (Ref Range: 0.0-0.4 %) Lymphocytes Percent Auto 32.4 (Ref Range: 20-40 %) 30.6 (Ref Range: 20-40 %) 30.0 (Ref Range: 20-40 %) Monocytes Percent Auto 9.3 (Ref Range: 2-11 %) 9.8 (Ref Range: 2-11 %) 11.2 H (Ref Range: 2-11 %) Eosinophils Percent Auto 3.7 (Ref Range: 0-4 %) 3.8 (Ref Range: 0-4 %) 4.7 H (Ref Range: 0-4 %) Basophils Percent Auto 0.5 (Ref Range: 0-2 %) 0.6 (Ref Range: 0-2 %) 0.9 (Ref Range: 0-2 %) NRBC Pct Auto 0.0 (Ref Range: 0.0-0.2 /100WBC) 0.0 (Ref Range: 0.0-0.2 /100WBC) 0.0 (Ref Range: 0.0-0.2 /100WBC) Neutrophils Absolute Auto 3.9 (Ref Range: 2.0-8.3 x10*3/uL) 3.9 (Ref Range: 2.0-8.3 x10*3/uL) 3.5 (Ref Range: 2.0-8.3 x10*3/uL) Imm Gran Abs Auto 0.03 (Ref Range: 0.00-0.03 X10*3/uL) 0.02 (Ref Range: 0.00-0.03 X10*3/uL) 0.01 (Ref Range: 0.00-0.03 X10*3/uL) Lymphocytes Absolute Auto 2.4 (Ref Range: 1.2-4.9 X10*3/uL) 2.2 (Ref Range: 1.2-4.9 X10*3/uL) 2.0 (Ref Range: 1.2-4.9 X10*3/uL) Monocytes Absolute Auto 0.7 (Ref Range: 0.1-1.2 X10*3/uL) 0.7 (Ref Range: 0.1-1.2 X10*3/uL) 0.7 (Ref Range: 0.1-1.2 X10*3/uL) Eosinophils Absolute Auto 0.3 (Ref Range: 0.0-0.4 X10*3/uL) 0.3 (Ref Range: 0.0-0.4 X10*3/uL) 0.3 (Ref Range: 0.0-0.4 X10*3/uL) Basophils Absolute Auto 0.0 (Ref Range: 0.0-0.2 X10*3/uL) 0.0 (Ref Range: 0.0-0.2 X10*3/uL) 0.1 (Ref Range: 0.0-0.2 X10*3/uL) NRBC Abs Auto 0.000 (Ref Range: 0.0-0.012 X10*3/uL) 0.000 (Ref Range: 0.0-0.012 X10*3/uL) 0.000 (Ref Range: 0.0-0.012 X10*3/uL) * Lab:[facility]. Nadia l Fast * Collection Date 10/19/2024 02/19/2022 09/18/2021 Collection Time 09:01 AM 10:29 AM 09:30 AM Order Date 10/19/2024 02/19/2022 09/18/2021 Sodium 138 (Ref Range: 135-145 mmol/L) 140 (Ref Range: 135-145 mmol/L) 138 (Ref Range: 135-145 mmol/L) Bilirubin Total 0.8 (Ref Range: 0.0-1.0 mg/dL) 0.9 (Ref Range: 0.0-1.0 mg/dL) 0.9 (Ref Range: 0.0-1.0 mg/dL) Aspartate Amino Transferase 37 (Ref Range: 5-37 U/L) 32 (Ref Range: 5-37 U/L) 29 (Ref Range: 5-37 U/L) Alanine Aminotransferase 47 H (Ref Range: 0-40 U/L) 62 H (Ref Range: 0-40 U/L) 50 H (Ref Range: 0-40 U/L) Total Protein 7.5 (Ref Range: 6.5-8.0 g/dL) 7.9 (Ref Range: 6.5-8.0 g/dL) 7.5 (Ref Range: 6.5-8.0 g/dL) Albumin Level 4.4 (Ref Range: 3.5-5.0 g/dL) 4.5 (Ref Range: 3.5-5.0 g/dL) 4.3 (Ref Range: 3.5-5.0 g/dL) Alkaline Phosphatase 93 (Ref Range: 39-117 U/L) 98 (Ref Range: 39-117 U/L) 99 (Ref Range: 39-117 U/L) Potassium 3.9 (Ref Range: 3.3-5.1 mmol/L) 4.3 (Ref Range: 3.3-5.1 mmol/L) 3.9 (Ref Range: 3.3-5.1 mmol/L) Chloride 104 (Ref Range: 96-108 mmol/L) 104 (Ref Range: 96-108 mmol/L) 105 (Ref Range: 96-108 mmol/L) Carbon Dioxide 27 (Ref Range: 22-29 mmol/L) 25 (Ref Range: 22-29 mmol/L) 26 (Ref Range: 22-29 mmol/L) Anion Gap 11 L (Ref Range: 12-20) 15 (Ref Range: 12-20) 11 L (Ref Range: 12-20) Blood Urea Nitrogen 22 H (Ref Range: 9-16 mg/dL) 20 H (Ref Range: 9-16 mg/dL) 19 H (Ref Range: 9-16 mg/dL) Creatinine 0.89 (Ref Range: 0.5-1.4 mg/dL) 0.96 (Ref Range: 0.5-1.4 mg/dL) 0.84 (Ref Range: 0.5-1.4 mg/dL) Estimated Glomerular Filt Rate > 60 > 60 > 60 Glucose Fasting 107 H (Ref Range: 60-99 mg/dL) 107 H (Ref Range: 60-99 mg/dL) 100 H (Ref Range: 60-99 mg/dL) Calcium 9.5 (Ref Range: 8.4-10.2 mg/dL) 9.9 (Ref Range: 8.4-10.2 mg/dL) 9.4 (Ref Range: 8.4-10.2 mg/dL) * Lab:Lipid Panel * Collection Date 10/19/2024 02/19/2022 09/18/2021 Collection Time 09:01 AM 10:29 AM 09:30 AM Order Date 10/19/2024 02/19/2022 09/18/2021 Triglycerides 128 (Ref Range: <150 mg/dL) 115 (Ref Range: mg/dL) 106 (Ref Range: mg/dL) Cholesterol 152 (Ref Range: <200 mg/dL) 166 (Ref Range: mg/dL) 139 (Ref Range: mg/dL) LDL Cholesterol Calculated 92 (Ref Range: <100 mg/dL) 104 (Ref Range: mg/dl) 86 (Ref Range: mg/dl) HDL Cholesterol 35 L (Ref Range: >40 mg/dL) 39 (Ref Range: mg/dL) 32 (Ref Range: mg/dL) * Examination: G eneral Examination: GENERAL APPEARANCE: [...] xtremities unremarkable, no clubbing, cyanosis or edema, Mild decreased range of motion lumbar spine. PERIPHERAL PULSES: [...] in his regimen as necessary. 3 . E ssential hypertension - I10 N otes :His blood work remains well controlled. He has been compliant with medication. 4 . B PH (benign prostatic hyperplasia) - N40.0 N otes :He reports rising from sleep usually once a night. Occasionally twice. We have discussed ways to reduce nocturia. 5 . F ormer smoker - Z87.891 N otes :He is motivated not to smoke and we discussed methods for maintenance of abstinence.He has lost 4 pounds since his last visit. 6 . O verweight - E66.3 N otes [...] w DIFF L AB: Lipid Panel 3. B PH (benign prostatic hyperplasia) L AB: PROFILE, FASTING (COMPREHENSIVE METABOLIC) L AB: PSA, TOTAL L AB: CBC w DIFF L AB: Lipid Panel 4. O thers Continue Atorvastatin Calcium Tablet, 80 [...] tobacco use and urged to quit. 0 10/19/2024 * Follow Up: 4 Months (Reason: ov review labs) * Images: * Sign off status: Completed true * Provider: Omero Murguia MD Date: 0 10/19/2024 Generated for Elaine godwin/Andrew/Andriy on: 05/08/2024 08:45 AM EST History and Physical Notes * [...] unremark able, no clubbing, cyanosis or edema, Mild decreased range of motion lumbar spine LYMPH NODES: no enlarged lymph no marisa,spleen normal RECTAL EXAM: not examined PSYCH: alert, oriented ORAL CAVITY: normal, unremarkable
--- OUTSIDE RECORDS SUMMARY | 2025-01-13 06:02 | XMS_ITS ---
Author Organization Brandon Murguia III, MD Address [address] [place] [address] [place] [address] Care Team Providers Care Manager Fraud Name Role Phone Dr. Brandon Murguia III Primary Care Provider [phone] REASON FOR VISIT Refills Medications Medication SIG (Take, Route, Frequency, Duration) Notes Start Date End Date Status Atorvastatin Calcium 80 MG TAKE 1 TABLET BY MOUTH EVERY DAY Orally Once a day for 90 days Active Metoprolol Tartrate 25 MG TAKE 1 TABLET BY MOUTH TWO TIMES A DAY WITH FOOD FOR 90 DAYS Orally Twice a day for 90 days Active Lisinopril 5 MG TAKE 1 TABLET BY KORY TH EVERY DAY Orally Once a day for 90 days Active Social History Sex Assigned At : Social History Observation Description Sex Assigned At Male Encounters Encounter Location Date Provider Diagnosis Brandon Murguia III, MD [address] [place] [address] [place] [address] 01/13/2025 Brandon Murguia Hyperlipidemia E78.5 Assessments Encounter Date Diagnosis (ICD Code) Assessment Notes Treat ment Notes Treatment Clinical Notes 01/13/2025 Hyperlipidemia (ICD-10 - E78.5) His blood work is stable at this time and no change in his regimen as necessary. Plan Of Treatment Medication Medication Name Sig Start Date Stop Date Notes Atorvastatin Calcium 80 MG TAKE 1 TABLET BY MOUTH EVERY DAY Orally Once a day for 90 days Metoprolol Tartrate 25 MG TAKE 1 TABLET BY MOUTH TWO TIMES A DAY WITH FOOD FOR 90 DAYS Orally Twice a day for 90 days Lisinopril 5 MG TAKE 1 TABLET BY KORY TH EVERY DAY Orally Once a day for 90 days Simvastatin 40 MG 1 tablet in the even ing Orally Once a day Next Appt Details Provider Name:Brandon Tuckerrne , 03/09/2025 01:45:00 PM, [address] [place] [address] DR, [facility] [address], [place], [address], Progress Notes * KATHRYNMunirareneDOB:[birth year] (69 yo M)Acc No.[id number]:01/13/2025 Patient: Darrell MAGALLANES :1955 A ge:69 Y S ex:Male Address:[address] [place] [id number] * Refills Refill Atorvastatin Calcium Tablet, 80 MG, Orally, 90, TAKE 1 TABLET BY MOUTH EVERY DAY, Once a day, 90 days, Refills=3 Refill Metoprolol Tartrate Tablet, 25 MG, Orally, 180, TAKE 1 TABLET BY MOUTH TWO TIMES A DAY WITH FOOD FOR 90 DAYS, Twice a day, 90 days, Refills=3 Refill Lisinopril Tablet, 5 MG, Orally, 90, TAKE 1 TABLET BY MOUTH EVERY DAY, Once a day, 90 days, Refills=3 Stop Simvastatin Tablet, 40 MG, Orally, 1 tablet in the evening, Once a day * true * Date: Generated for Elaine godwin/Andrew/Andriy on: 05/08/2024 08:46 AM EST
--- OUTSIDE RECORDS SUMMARY | 2025-02-22 10:00 | XMS_ITS ---
Author Organization Brandon Murguia III, MD Address [address] [place] [address] [place] [address] Care Team Providers Care Organ Tuner Name Role Phone Dr. Brandon Murguia III Primary Care Provider [phone] Allergies Allergen (clinical drug ingredient) Drug/Non Drug Allergy documented on EMR Reaction Allergy Type Onset Date Status No Known Drug Allergy Unknown Drug Allergy Active REASON FOR VISIT Follow up Medications Medication SIG (Take, Route, Frequency, Duration) Notes Start Date End Date Status Atorvastatin Calcium 80 MG TAKE 1 TABLET BY MOUTH EVERY DAY Orally Once a day Active Metoprolol Tartrate 25 MG TAKE 1 TABLET BY MOUTH TWO TIMES A DAY WITH FOOD FOR 90 DAYS Orally Twice a day Active Lisinopril 5 MG TAKE 1 TABLET BY KORY TH EVERY DAY Orally Once a day Active Adult Aspirin [...] Date Provider Diagnosis Brandon Murguia III, MD [address] [place] [address] [address] [facility] [address] 02/22/2025 Brandon Murguia Hyperlipidemia E78.5 Assessments Encounter Date Diagnosis (ICD Code) Assessment Notes Treat ment Notes Treatment Clinical Notes 02/22/2025 Hyperlipidemia (ICD-10 - E78.5) His blood work is stable at this time and no change in his regimen as necessary. Plan Of Treatment Medication Medication Name Sig Start Date Stop Date Notes Atorvastatin Calcium 80 MG TAKE 1 TABLET BY MOUTH EVERY DAY Orally Once a day Metoprolol Tartrate 25 MG TAKE 1 TABLET BY MOUTH TWO TIMES A DAY WITH FOOD FOR 90 DAYS Orally Twice a day Lisinopril 5 MG TAKE 1 TABLET BY KORY TH EVERY DAY Orally Once a day Adult Aspirin EC Low Strengt h 81 MG 1 tablet Orally Once a day Hydrocortisone 1 % as directed External ly four times a day to effected area until resolved 10/13/2014 Next Appt Details Provider Name:Brandon Murguia , 03/09/2025 01:45:00 PM, [address] [place] [address] [address], [place], [address], Progress Notes * Darrell MAEDOB:[birth year] (69 yo M)Acc No.[id number]:02/22/2025 Progress Notes Patient: Darrell MAGALLANES Provider: Omero Murguia MD :1955 A ge:69 Y S ex:Male Date:02/22/2025 Address:[address] [place], [place] [id number] Subjective: * Chief Complaints: * 1 . [...] and lives alone and was born in [place]. * Medications: T aking Adult Aspirin EC Low Strength 81 MG Tablet Delayed Release 1 tablet Orally Once a day , Taking Hydrocortisone 1 % Cream as directed Externally four times a day to effected area until resolved , Taking Atorvastatin Calcium 80 MG Tablet TAKE 1 TABLET BY MOUTH EVERY DAY Orally Once a day , Taking Metoprolol Tartrate 25 MG Tablet TAKE 1 TABLET BY MOUTH TWO TIMES A DAY WITH FOOD FOR 90 DAYS Orally Twice a day , Taking Lisinopril 5 MG Tablet TAKE 1 TABLET BY MOUTH EVERY DAY Orally Once a day , Medication List reviewed and reconciled with [...] MG, TAKE 1 TABLET BY MOUTH EVERY DAY, Orally, Once a day;?Continue Metoprolol Tartrate Tablet, 25 MG, TAKE 1 TABLET BY MOUTH TWO TIMES A DAY WITH FOOD FOR 90 DAYS, Orally, Twice a day; C ontinue Lisinopril Tablet, 5 MG, TAKE 1 TABLET BY MOUTH EVERY DAY, Orally, Once a day. * Images: * The named appointment provid er may or may not be the originator of this progress note, and it is not deemed complete until electronically signed by the appointment provider. Sign off status: Pending * Provider: Omero Murguia MD Date: 04/24/2024 Generated for Elaine godwin/Andrew/Andriy on: 05/08/2024 08:46 AM EST History and [...]
--- OUTSIDE RECORDS SUMMARY | 2025-03-08 08:46 | XMS_ITS | Patient Health Record ---
Author Organization Brandon Murguia III, MD Address [address] [place] [address] [place] [phone] Care Team Providers Care Manager Custom Name Role Phone Dr. Brandon Murguia III [...] 1.3 BLD neg Negative - Menstrating n/a Complete Blood Count Auto Di ff Reviewed date:10/19/2024 01:34:00 PM Interpretation: Performing Lab:[facility], [address] [place] [phone] Notes/Report: White Blood Count 7.3 4.8-10.8 X10*3/uL Red Blood Count 4.46 4.60-5.80 X10*6/uL Hemoglobin 12.8 14.0-18.0 g/dl Hematocrit 38.6 42.0-52.0 % Mean Corpuscular Volume 86.5 80.0-98.0 fL Mean Corpuscular Hemoglobin 28.7 27.0-33.0 pg Mean Corpuscular HGB Conc 33.2 31.0-36.0 g/dl Red Cell Distribution Width 13.6 11.0-16.0 % Platelet Count 214 160-400 X10*3/uL Mean Platelet Volume 10.5 9.4-12.4 fL Neutrophils Percent Auto 53.7 45-73 % Imm Gran Pct Auto 0.4 0.0-0.4 % Lymphocytes Percent Auto 32.4 20-40 % Monocytes Percent Auto 9.3 2-11 % Eosinophils Percent Auto 3.7 0-4 % Basophils Percent Auto 0.5 0-2 % NRBC Pct Auto 0.0 0.0-0.2 /100WBC Neutrophils Absolute Auto 3.9 2.0-8.3 x10*3/u L Imm Gran Abs Auto 0.03 0.00-0.03 X10*3/uL Lymphocytes Absolute Auto 2.4 1.2-4.9 X10*3/u L Monocytes Absolute Auto 0.7 0.1-1.2 X10*3/uL Eosinophils Absolute Auto 0.3 0.0-0.4 X10*3/u L Basophils Absolute Auto 0.0 0.0-0.2 X10*3/uL NRBC Abs Auto 0.000 0.0-0.012 X10*3/uL Comprehensive [place]. Panel Fa st Reviewed date:10/19/2024 01:34:00 PM Interpretation: Performing Lab:[facility], [address] [place] [phone] Notes/Report: Sodium 138 135-145 mmol/L Potassium 3.9 3.3-5.1 mmol/L Chloride 104 96-108 mmol/L Carbon Dioxide 27 22-29 mmol/L Anion Gap 11 12-20 Blood Urea Nitrogen 22 9-16 mg/dL Creatinine 0.89 0.5-1.4 mg/dL Estimated Glomerular Filt Rate > 60 Chronic Kidney Disease: Estimated GFR < 60 mL/min/1.73m2 Severe Kidney Disease: Estimated GFR < 15 mL/min/1.73m2 Glucose Fasting 107 60-99 mg/dL A fasting glucose from 100-125 mg/dl is considered impaired (pre-diabetes). Calcium 9.5 8.4-10.2 mg/dL Bilirubin Total 0.8 0.0-1.0 mg/dL Aspartate Amino Transferase 37 5-37 U/L Alanine Aminotransferase 47 0-40 U/L Total Protein 7.5 6.5-8.0 g/dL Albumin Level 4.4 3.5-5.0 g/dL Alkaline Phosphatase 93 39-117 U/L Lipid Panel Reviewed date:10/19/2024 01:34:00 PM Interpretation: Performing Lab:[facility], [address] [place] [phone] Notes/Report: Triglycerides 128 <150 mg/dL Desirable Triglyceride: less than 150 mg/dL Borderline High Triglyceride 150-199 mg/dL High Triglyceride: 200-499 mg/dL Very High Triglyceride: greater than or equal to 5OO mg/dL Cholesterol 152 <200 mg/dL Desirable Cholesterol: less than 200 mg/dL Borderline High Cholesterol: 200-239 mg/dL High Cholesterol: greater than 239 mg/dL LDL Cholesterol Calculated 92 <100 mg/dL Desirable LDL: less than 100 mg/dL Near Optimal/Above Optimal LDL: 110-129 mg/dL Borderline High LDL: 130-159 mg/dL High LDL: 160-189 mg/dL Very High LDL: greater than or equal to 190 mg/dL HDL Cholesterol 35 >40 mg/dL Desirable HDL: greater than 40 mg/dL Note: This HDL assay may give artificially low results in patients with liver disease. Reason For Referral Reason Consult and treat High Risk Screen for Colon Cancer Diagnosis 1 Screen for colon can cer (Z12.11) Referral Organization Brandon Murguia III, MD Referring Provider First Name Brandon Referring Provider Last Name Blade Referring Provider Speciality Internal M edicine Referred Organization [facility] Address [address] [place] [phone], Referred Provider Specialty Gastroentero logy General Notes Yolie Courtney 08/07/2024 09:52:38 AM > referral and progress note faxed. Patients daughter was given the number to contact them.Sherwin Amber 10/14/2024 03:47:13 PM > Spoke with Geeta at [facility] stated the fax number is invalid they are no longer receiving referral to that fax all referral need to come with a cover sheet and be sent to [phone]. Referral has been updated from Dr. Veloz to [facility]. Referral, cover sheet and progress note has been faxed to [phone] Referral Priority Routine Medications Medication SIG (Take, Route, Frequency, Duration) [...] Additional Findings: Tobacco Non-User Ex-cigaret te smoker Alcohol Screen Question Answer Notes Did you have a drink contain ing alcohol in the past year? Yes How often did you have a dri nk containing alcohol in the past year? 2 to 4 times a month (2 points) Points 2 Interpretation Negative Problems Problem Type SNOMED Code ICD Code Onset Dates Problem Status W/U Status Risk Notes Problem 0379686 Former smoker (Z87.891) Active confirmed He is motivated not to smoke and we discussed methods for maintenance of abstinence.He has lost 4 pounds since his last visit. Problem 12337025 Hyperlipidemia (E78.5) Active confirmed His blood work is stable at this time and no change in his regimen as necessary. Problem 340028203 Overweight (E66.3) Active confirmed His body mass index is 29. He has gained 3 pounds.We reviewed his weight loss plan and diet and nutrition. He is going to try to lose weight at a rate of one half of a pound per week. Problem Benign prostatic hyperplasia (753651380) BPH (benign prostatic hyperplasia) (N40.0) Active confirmed He reports rising from sleep usually once a night. Occasionally twice. We have discussed ways to reduce nocturia. Problem 69040663 Essential hypertension (I10) Active confirmed His blood work remains well controlled. He has been compliant with medication. Problem 61638050 CAD (coronary artery disease) (I25.10) Active confirmed His ischemic heart disease is stable. He has had no episodes of angina, palpitations or syncope recently. He has been compliant with his medications. His total cholesterol is in the target range. Problem 35599215 Hemorrhoids (K64.9) Active confirmed The area has improved substantially. He will return as needed. Problem [id number] Back pain, unspecified back location, unspecified back pain laterality, unspecified chronicity (M54.9) Active confirmed His back pain is intermittent and low-grade at this point. He will continue to avoid undue exertion and heavy lifting. He will return to the office at once if it exacerbates. Vital Signs Heart Rate 48 /min 10/19/2024 Temperature 97.4 degrees Fahrenheit 10/19/2024 Blood pressure diastolic 84 mm Hg 10/19/2024 Height 63 in 10/19/2024 Blood pressure systolic 137 mm Hg 10/19/2024 Weight 166 lbs 10/19/2024 BMI 29.4 kg/m2 10/19/2024 Encounters Encounter Location Date Provider Diagnosis Brandon Murguia III, MD [address] [place] [address] [place] [phone] 03/31/2024 Brandon Murguia Hyperlipidemia E78.5 ; Essential hypertension I10 ; Back pain, unspecified back location, unspecified back pain laterality, unspecified chronicity M54.9 ; Hyperglycemia R73.9 ; CAD (coronary artery disease) I25.10 ; Former smoker Z87.891 and Overweight E66.3 Brandon Murguia III, MD [address] [place] [address] [place] [phone] 08/03/2024 Brandon Murguia Hyperlipidemia E78.5 ; CAD (coronary artery disease) I25.10 ; Overweight E66.3 ; Essential hypertension I10 ; Former smoker Z87.891 ; Back pain, unspecified back location, unspecified back pain laterality, unspecified chronicity M54.9 and BPH (benign prostatic hyperplasia) N40.0 Brandon Murguia III, MD [address] [place] [address] [address] [phone] 10/19/2024 Brandon Murguia Hyperlipidemia E78.5 ; CAD (coronary artery disease) I25.10 ; Essential hypertension I10 ; BPH (benign prostatic hyperplasia) N40.0 ; Former smoker Z87.891 and Overweight E66.3 Brandon Murguia III, MD [address] [place] [address] [address] [phone] 01/13/2025 Brandon Hernandezne Hyperlipidemia E78.5 Assessments Encounter Date Diagnosis (ICD [...] change in his medications was necessary. 08/03/2024 Hyperlipidemia (ICD-10 - E78.5) His blood work is stable at this time and no change in his regimen as necessary. 08/03/2024 CAD (coronary artery disease) (ICD-10 - I25.10) His ischemic heart disease is stable. He has had no episodes of angina, palpitations or syncope recently. He has been compliant with his medications. His total cholesterol is in the target range. 10/19/2024 Hyperlipidemia (ICD-10 - E78.5) His blood work is stable at this time and no change in his regimen as necessary. 10/19/2024 CAD (coronary artery disease) (ICD-10 - I25.10) His ischemic heart disease is stable. He has had no episodes of angina, palpitations or syncope recently. He has been compliant with his medications. His total cholesterol is in the target range. 01/13/2025 Hyperlipidemia (ICD-10 - E78.5) His blood work is stable at this time and no change in his regimen as necessary. 03/31/2024 Back pain, unspecified back location, unspecified back pain laterality, unspecified chronicity (ICD-10 - M54.9) His back pain is intermittent and low-grade at this point. He will continue to avoid undue exertion and heavy lifting. He will return to the office at once if it exacerbates. 08/03/2024 Overweight (ICD-10 - E66.3) His body mass index is 29. He has gained 3 pounds.We reviewed his weight loss plan and diet and nutrition. He is going to try to lose weight at a rate of one half of a pound per week. 10/19/2024 Essential hypertension (ICD-10 - I10) His blood work remains well controlled. He has been compliant with medication. 03/31/2024 Hyperglycemia (ICD-1 0 - R73.9) His hemoglobin A1c is 6.3. No change in his regimen was made. He was encouraged to lose weight and avoid concentrated sweets. 08/03/2024 Essential hypertension (ICD-10 - I10) His blood pressure today was 135/83. He was encouraged to lose weight and restrict sodium. No change in his medications was necessary. 10/19/2024 BPH (benign prostati c hyperplasia) (ICD-10 - N40.0) He reports rising from sleep usually once a night. Occasionally twice. We have discussed ways to reduce nocturia. 03/31/2024 CAD (coronary artery disease) (ICD-10 - I25.10) His ischemic heart disease is stable. He has had no episodes of angina, palpitations or syncope recently. He has been compliant with his medications. His total cholesterol is in the target range. 08/03/2024 Former smoker (ICD-1 0 - Z87.891) He is motivated not to smoke and we discussed methods for maintenance of abstinence.He has lost 4 pounds since his last visit. 10/19/2024 Former smoker (ICD-1 0 - Z87.891) He is motivated not to smoke and we discussed methods for maintenance of abstinence.He has lost 4 pounds since his last visit. 03/31/2024 Former smoker (ICD-1 0 - Z87.891) [...] the office at once if it exacerbates. 10/19/2024 Overweight (ICD-10 - E66.3) His body mass index is 29. He has gained 3 pounds.We reviewed his weight loss plan and diet and nutrition. He is going to try to lose weight at a rate of one half of a pound per week. 03/31/2024 Overweight (ICD-10 - E66.3) His body mass index is 29. We reviewed his dieet and nutrition. We made a plan to lose weigght at a rate of one half of a pound per week. 08/03/2024 BPH (benign prostati c hyperplasia) (ICD-10 - N40.0) He rises from sleep once or twice a night. We have discussed lifestyle modification as a way to reduce nocturia. Plan Of Treatment Pending Test Test Name Order Date PROFILE, FASTING (COMPREHENSIVE METABOLI C) 06/09/2018 PROFILE, FASTING (COMPREHENSIVE METABOLI C) 07/02/2022 PROFILE, FASTING (COMPREHENSIVE METABOLI C) 02/02/2019 PROFILE, FASTING (COMPREHENSIVE METABOLI C) 07/30/2023 PROFILE, FASTING (COMPREHENSIVE METABOLI C) 10/05/2019 PROFILE, FASTING (COMPREHENSIVE METABOLI C) 06/13/2017 PROFILE, FASTING (COMPREHENSIVE METABOLI C) 05/07/2023 PROFILE, FASTING (COMPREHENSIVE METABOLI C) 10/19/2024 PROFILE, FASTING (COMPREHENSIVE METABOLI C) 01/27/2018 PROFILE, FASTING (COMPREHENSIVE METABOLI C) 02/26/2022 PROFILE, FASTING (COMPREHENSIVE METABOLI C) 10/06/2018 PROFILE, FASTING (COMPREHENSIVE METABOLI C) 06/08/2019 PROFILE, FASTING (COMPREHENSIVE METABOLI C) 03/31/2024 PROFILE, FASTING (COMPREHENSIVE METABOLI C) 11/20/2016 PROFILE, FASTING (COMPREHENSIVE METABOLI C) 06/26/2021 PROFILE, FASTING (COMPREHENSIVE METABOLI C) 12/31/2022 PROFILE, FASTING (COMPREHENSIVE METABOLI C) 08/03/2024 PROFILE, FASTING (COMPREHENSIVE METABOLI C) 08/26/2017 PROFILE, RANDOM (COMPREHENSIVE METABOLIC ) 08/13/2011 LIPID PANEL 06/26/2021 LIPID PANEL 12/31/2022 LIPID PANEL 08/26/2017 LIPID PANEL 06/09/2018 LIPID PANEL 07/02/2022 LIPID PANEL 02/02/2019 LIPID PANEL 07/30/2023 LIPID PANEL 08/13/2011 LIPID PANEL 10/05/2019 LIPID PANEL 06/13/2017 LIPID PANEL 02/26/2022 LIPID PANEL 10/06/2018 LIPID PANEL 06/08/2019 LIPID PANEL 11/20/2016 CHOLESTEROL 01/27/2018 PSA, TOTAL 06/26/2021 PSA, TOTAL 07/02/2022 PSA, TOTAL 05/07/2023 PSA, TOTAL 10/19/2024 PSA, TOTAL 03/31/2024 CBC w DIFF 08/03/2024 CBC w DIFF 06/08/2019 CBC w DIFF 03/31/2024 CBC w DIFF 11/20/2016 CBC w DIFF 12/31/2022 CBC w DIFF 08/26/2017 CBC w DIFF 06/26/2021 CBC w DIFF 06/09/2018 CBC w DIFF 02/02/2019 CBC w DIFF 07/30/2023 CBC w DIFF 08/13/2011 CBC w DIFF 10/05/2019 CBC w DIFF 07/02/2022 CBC w DIFF 06/13/2017 CBC w DIFF 10/19/2024 CBC w DIFF 01/27/2018 CBC w DIFF 02/26/2022 CBC w DIFF 10/06/2018 CBC WITH AUTO DIFF 05/07/2023 Lipid Panel 05/07/2023 Lipid Panel 10/19/2024 Lipid Panel 08/03/2024 Lipid Panel 03/31/2024 Microalbumin, Random 03/31/2024 Hemoglobin A1c 03/31/2024 Next Appt Details Provider Name:Brandon Murguia , 03/09/2025 01:45:00 PM, [address] [place] [address] , [facility], [place], [phone], Medical (General) History Medical History History ICD Code Two-vessel coronary artery disease hyperlipidemia hemorrhoid 09/2014 Surgical History Surgery Date(Month/Year) No history Hospitalization History Reason Date(Month/Year) No history
[2025-03-08 10:06] LABS: MANUAL DIFF FLAG NO
[2025-03-08 10:17] LABS: Hematocrit 38.9 % (42.0-52.0); Hemoglobin 12.6 g/dl (14.0-18.0); Imm Gran Abs Auto 0.02 X10*3/uL (0.00-0.03); Imm Gran Pct Auto 0.3 % (0.0-0.4); Lymphocytes Absolute Auto 2.1 X10*3/uL (1.2-4.9); Mean Corpuscular HGB Conc 32.4 g/dl (31.0-36.0); Mean Corpuscular Hemoglobin 28.6 pg (27.0-33.0); Mean Corpuscular Volume 88.4 fL (80.0-98.0); NRBC Abs Auto 0.000 X10*3/uL (0.0-0.012); NRBC Pct Auto 0.0 /100WBC (0.0-0.2); Platelet Count 212 X10*3/uL (160-400); Red Blood Count 4.40 X10*6/uL (4.60-5.80); White Blood Count 6.7 X10*3/uL (4.8-10.8)
[2025-03-08 10:45] LABS: Prostate Specific Antigen 1.42 ng/mL (<0.05-4.0)
[2025-03-08 10:58] LABS: Alanine Aminotransferase 39 U/L (0-40); Albumin Level 4.4 g/dL (3.5-5.0); Alkaline Phosphatase 115 U/L (39-117); Anion Gap 10 (12-20); Aspartate Amino Transferase 42 U/L (5-37); Blood Urea Nitrogen 23 mg/dL (9-16); Calcium 9.4 mg/dL (8.4-10.2); Carbon Dioxide 28 mmol/L (22-29); Chloride 107 mmol/L (96-108); Cholesterol 128 mg/dL (<200); Estimated Glomerular Filt Rate > 60; HDL Cholesterol 31 mg/dL (>40); Potassium 4.2 mmol/L (3.3-5.1); Sodium 141 mmol/L (135-145); Total Protein 7.7 g/dL (6.5-8.0); Triglycerides 124 mg/dL (<150)
== END 2025-03-08 08:31 | disposition home or self-care (01) ==
LOC: HO.HMGCLDS 08:30
PROVIDERS: PCP Internal Medicine Medical Oncology; Visit Provider Internal Medicine Medical Oncology
DX: I10 Essential (primary) hypertension (principal); N40.0 Benign prostatic hyperplasia without lower urinary tract symptoms; E78.5 Hyperlipidemia, unspecified
CPT/HCPCS: 36415; 80053; 80061; 84153; 85025